=== PATIENT | female | born 1950 | race Caucasian/White ===

== ENCOUNTER → 2018-05-17 | Day surgery (SDC) | payer MEDICARE, OTHER ==
[~2018-05-17] MED LIST: LIDOCAINE 1% PF 2 ML VIAL. ID; LIDOCAINE 2% PF Vial for OR 5 ML VIAL.; MIDAZOLAM HCL/PF 2 MG/2 ML VIAL. IV; PROPOFOL 40 ML IV; fentaNYL PF VIAL 100 MCG/2 ML VIAL IV
[2018-05-17] MEDS: IV RINGERS,LACTATED 1000ML 1,000 ML IV ×2 (12:48→12:49)
== END | disposition home or self-care (01) ==
LOC: SURG 12:23
DX: Z12.11 Encounter for screening for malignant neoplasm of colon (principal); D12.8 Benign neoplasm of rectum; K57.30 Diverticulosis of large intestine without perforation or abscess without bleeding; K64.0 First degree hemorrhoids; F41.9 Anxiety disorder, unspecified; Z88.1 Allergy status to other antibiotic agents; Z88.0 Allergy status to penicillin
CPT/HCPCS: 45380; 45385; 88305; J2001; J2704

== ENCOUNTER 2020-06-19 19:16 | Inpatient (IN) | payer MEDICARE, OTHER ==
[~2020-06-19] VITALS: Ht 165.1 cm; Wt 64.0 kg
[2020-06-19 19:00] VITALS: BP 147/64
[~2020-06-19 19:16] MED LIST changes: +CLON-77 PO; -LIDOCAINE 1% PF 2 ML VIAL. ID; -LIDOCAINE 2% PF Vial for OR 5 ML VIAL.; -MIDAZOLAM HCL/PF 2 MG/2 ML VIAL. IV; -PROPOFOL 40 ML IV; +SERT50TA PO; -fentaNYL PF VIAL 100 MCG/2 ML VIAL IV
[2020-06-19] MEDS ORDERED: ONDANSETRON PF 4 MG/2 ML VIAL. IVP PRN (19:30)
[2020-06-19] MEDS ORDERED: POTASSIUM CL 20MEQ D5-0.45NACL 1,000 ML IV SCH (20:00)
[2020-06-19] MEDS: CIPROFLOXACIN 400MG PREMIX 200 ML IV SCH (20:32)
[2020-06-19] MEDS: POTASSIUM CL 20MEQ D5-0.45NACL 1,000 ML IV SCH (20:32)
[2020-06-19 23:00] VITALS: BP 132/51
[2020-06-20] VITALS (11 sets, daily range): BP systolic 120–140; BP diastolic 45–58
[2020-06-20] MEDS: fentaNYL PF VIAL 100 MCG/2 ML VIAL IVP PRN ×3 (04:52→21:14)
[2020-06-20] MEDS: POTASSIUM CL 20MEQ D5-0.45NACL 1,000 ML IV SCH ×2 (05:53→17:00)
[2020-06-20 07:01] LABS: ALBUMIN/GLOBULIN RATIO 0.9 (1.0-1.7); CALCIUM 8.2 mg/dL (8.5-10.1); CREATININE 0.9 mg/dL (0.6-1.0); GFR 62.1; POTASSIUM 3.7 mmol/L (3.5-5.1); TOTAL BILIRUBIN 0.4 mg/dL (0.2-1.0); TOTAL PROTEIN 6.3 g/dL (6.4-8.2)
[2020-06-20 07:11] LABS: PROTHROMBIN TIME PATIENT 14.4 SEC (11.7-14.0)
[2020-06-20 07:19] LABS: BASO % 1 % (0-3); EOS # 0.1 x10^3/uL (0.0-0.7); EOS % 2 % (0-3); HEMATOCRIT 35.8 % (36.0-47.0); HEMOGLOBIN 12.1 g/dL (12.0-15.5); LYMPH # 1.3 x10^3/uL (1.0-4.8); LYMPH % 18 % (24-48); MEAN CORPUSCULAR HEMOGLOBIN 30 pg (25-35); MEAN CORPUSCULAR HGB CONC 34 g/dL (31-37); MEAN CORPUSCULAR VOLUME 89 fL (79-100); MONO # 0.5 x10^3/uL (0.0-1.1); MONO % 8 % (0-9); NEUT % 72 % (31-73); PLATELET COUNT 195 x10^3/uL (140-400); RED BLOOD COUNT 4.01 x10^6/uL (3.50-5.40); RED CELL DISTRIBUTION WIDTH 14.2 % (11.5-14.5)
[2020-06-20] MEDS: CIPROFLOXACIN 400MG PREMIX 200 ML IV SCH ×2 (09:20→21:07)
--- NOTE | 2020-06-20 09:53 | PN ---
DATE: 06/20/2020 SUBJECTIVE: The patient is a 69-year-old female patient, who was seen originally at [facility] with right lower quadrant pain, was diagnosed with acute appendicitis and was transferred to [facility] for definitive surgical treatment. On questioning her this morning, she continued to have some mild discomfort in her right lower quadrant, but denied any nausea or vomiting. She does continue to have loose bowel movement, but denied any chills, rigors or fever. PHYSICAL EXAMINATION: GENERAL: When I examined her, she looked well and was clearly in no apparent respiratory distress. No pallor, jaundice, cyanosis or thyromegaly. No jugular venous distention. No lower limb edema. VITAL SIGNS: Her heart rate was 69, blood pressure was 140/48, temperature was 98.3, respiratory rate was 18 and oxygen saturation was 95%. HEAD, EYES, EARS, NOSE AND THROAT: Normocephalic, atraumatic. NECK: Supple. CARDIAC: Normal first and second heart sounds. No gallop or murmur. CHEST: Clear to auscultation. No crepitation or rhonchi. ABDOMEN: Distended, soft, with tenderness mostly in the right lower quadrant; however, there is no guarding or rigidity, no organomegaly. All hernial orifices intact. Bowel sounds normal. NEUROLOGIC: She is grossly intact. LABORATORY DATA: Her lab work this morning showed a white cell count of 7000, hemoglobin 12, hematocrit 36, MCV 89, platelet count of 195,000 with normal manual differential. Her chemistry showed a serum sodium of 140, potassium 3.7, chloride 108, bicarbonate 26, anion gap of 6, BUN 5, creatinine was 0.9, estimated GFR was 62 mL per minute, her glucose was 123, calcium was 8.7. Total bilirubin, AST, ALT and alkaline phosphatase were normal. Total protein was 6.3. Albumin 3. Her prothrombin time 14.4, INR 1.2. ASSESSMENT: Acute appendicitis. PLAN: To obviously continue with n.p.o. status; await evaluation by the Surgical team; continue with IV fluid, IV pain medication and antiemetic as well as IV antibiotics in the form of Cipro as well as Flagyl. FELICIA SANCHEZ MD DR: ARMANDO/rishi JOB#: [id number] / [id number]
--- NOTE | 2020-06-20 10:25 | HP ---
ADMIT DATE: 06/20/2020 HISTORY OF PRESENT ILLNESS: The patient is a 69-year-old female patient, who presented to the Emergency Room of [facility] with complaint of right lower quadrant abdominal pain and diarrhea. The abdominal pain is mild to moderate, cramping, intermittent in nature. She apparently has had diarrhea for a couple of days. Apparently, anything that she tries to eat, has forcefully as diarrhea. She has not had this before, so she is concerned. No history of abdominal surgery. She was recently diagnosed with urinary tract infection and was put on Cipro; has taken a total of 4 doses before she arrived to the Emergency Room; however, she denied any nausea or vomiting. Denied any chills, rigors, or fever. She was extensively investigated in the Emergency Room and her lab work showed that her white cell count was normal. Her chemistry was unremarkable. Urinalysis was unrevealing and her COVID-19 rapid testing was negative and the patient had a CT scan of the abdomen and pelvis, which showed that the patient has finding of acute appendicitis with mild adjacent fat stranding, no fluid collection or evidence of perforation, and therefore, the patient was transferred to [facility] to consult the surgical team for definitive surgical treatment. PAST MEDICAL HISTORY: Unremarkable except perhaps for depression. PAST SURGICAL HISTORY: Also, unremarkable. She has had a colonoscopy before. ALLERGIES: SHE IS ALLERGIC TO PENICILLIN AND SULFA DRUGS. MEDICATIONS: The patient is on Align as well as sertraline. FAMILY HISTORY: Unremarkable. SOCIAL HISTORY: She does not smoke, drink alcohol, or use any recreational drugs. REVIEW OF SYSTEMS: As per history of present illness. PHYSICAL EXAMINATION: GENERAL: On arrival to the Emergency Room, she looked well and was clearly in no apparent respiratory distress. No pallor, jaundice, cyanosis, or thyromegaly. No jugular venous distention. No lower limb edema. VITAL SIGNS: Her heart rate was 83, blood pressure 155/73, temperature was 98.4, respiratory rate was 18, and oxygen saturation 100%. HEAD, EYES, EARS, NOSE AND THROAT: Normocephalic, atraumatic. NECK: Supple. CARDIAC: Normal first and second heart sounds. No gallop, rub, or murmur. CHEST: Shows central trachea, equal bilateral chest expansion, air entry, vesicular sounds. No crepitation or rhonchi. ABDOMEN: Distended, soft with tenderness mostly in the right lower quadrant. There is no guarding or rigidity. No organomegaly. All hernial orifice intact. Bowel sounds normal. NEUROLOGIC: She was grossly intact. LABORATORY DATA: Showed a white cell count 7200; hemoglobin 13.7; hematocrit 41; MCV 90; and platelet count 214,000. Her chemistry showed a serum sodium 138, potassium 3.7, chloride 102, bicarbonate 26, anion gap of 10, BUN 8, creatinine 1, estimated GFR was 55 mL per minute. Her glucose 105. Calcium was 8.9. Total bilirubin, AST, ALT, alkaline phosphatase were normal. Total protein 7.6. Albumin 3.7. Her urinalysis showed the urine was straw colored, clear with a pH of 6, specific gravity 1.005. The urine was negative for protein and glucose. There was a trace of blood. Negative for nitrite and leukocyte esterase. There are rare wbc's, rare rbc's, and no bacteria. The CT scan of the abdomen and pelvis showed that heart size is normal. No pericardial effusion. Visualized lung bases are clear. No pleural effusion. Liver, spleen, pancreas, gallbladder, and adrenals are unremarkable. Kidneys demonstrate symmetric enhancement. No perinephric inflammation or hydronephrosis. No renal or ureteral calculi are identified. Bladder is decompressed; not well evaluated. The uterus is not enlarged, with no abnormal adnexal masses. The appendix is dilated measuring 1 cm in diameter. There is mild adjacent fat stranding noted. No fluid collection identified. Few scattered diverticula noted in the sigmoid colon. The remainder of the large and small bowel are unremarkable for no obstruction. Abdominal aorta has normal course and caliber. Abdominal vasculature is patent. No enlarged intra-abdominal lymph nodes are identified. No suspicious osseous lesions or acute fractures identified. ASSESSMENT AND PLAN: The patient was admitted to [facility], is kept n.p.o., started on IV fluid, IV pain medication. Continue with IV ciprofloxacin as well as Flagyl. We have consulted the surgical team. FELICIA SANCHEZ MD DR: ARMANDO/rishi JOB#: [id number] / [id number]
--- NOTE | 2020-06-20 11:08 | PDOC2 ---
CONSULT Date of Consult Date of Consult DATE: 06/20/20 TIME: 10:58 Reason for Consult Reason for Consult: appendicitis Referring Physician Referring Physician: Dr. Ledezma Identification/Chief Complaint Chief Complaint diarrhea Source Source: Chart review, Patient History of Present Illness Reason for Visit: 69 yo F with c/o diarrhea and mild RLQ abd pain. Seen in clinic and treated for UTI. Pt with persistent issues and presented to [facility] ER last night and diagnosed with appendicitis. Transferred to [facility] for care. Pt seen in room and reports pain is mild, but still uncomfortable. She had a recent colonoscopy in the past year with small polyp and diverticulosis. Past Medical History Cardiovascular: No pertinent hx Psych: Depression Past Surgical History Past Surgical History: No pertinent history Family History Family History: No Significant Social History No ALCOHOL: none Current Medications Current Medications Current Medications Ciprofloxacin/ Dextrose 200 ml @ 200 mls/hr Q12HR IV Last administered on 06/20/20at 09:20; Start 06/19/20 at 21:00 Metronidazole 100 ml @ 100 mls/hr Q8HRS IV Last administered on 06/20/20at 05:52; Start 06/19/20 at 22:00 Potassium Chloride/Dextrose/ Sod Cl 1,000 ml @ 100 mls/hr Q10H IV ; Start 06/19/20 at 20:00; Status Cancel Fentanyl Citrate (Fentanyl 2ml Vial) 50 mcg PRN Q3HRS PRN IVP PAIN Last administered on 06/20/20at 04:52; Start 06/19/20 at 19:30 Ondansetron HCl (Zofran) 4 mg PRN Q4HRS PRN IVP NAUSEA/VOMITING; Start 06/19/20 at 19:30 Potassium Chloride/Dextrose/ Sod Cl 1,000 ml @ 100 mls/hr Q10H IV Last administered on 06/20/20at 05:53; Start 06/19/20 at 21:00 Active Scripts Active Reported Clonazepam 0.5 Mg Tablet 0.5 Mg PO TID Zoloft (Sertraline Hcl) 50 Mg Tablet 50 Mg PO DAILY Allergies Allergies: Coded Allergies: Penicillins (Verified Allergy, Intermediate, Hives, 05/17/18) Sulfa (Sulfonamide Antibiotics) (Unverified Allergy, Intermediate, 05/17/18) ROS Gastrointestinal: Yes Abdominal Pain, Yes Diarrhea Physical Exam General: Alert, Oriented X3, Cooperative, mild distress HEENT: Atraumatic Lungs: Normal air movement Abdomen: Soft, Other (mild TTP RLQ) Extremities: No clubbing, No cyanosis Skin: No rashes, No breakdown Neuro: Normal speech, Sensation intact Psych/Mental Status: Mental status NL, Mood NL Vitals VITALS Vital Signs Date Time Temp Pulse Resp B/P (MAP) Pulse Ox O2 Delivery O2 Flow Rate FiO2 06/20/20 07:00 98.3 69 18 140/48 (78) 95 Room Air 98.3 Labs Labs Laboratory Tests Test 06/20/20 05:41 White Blood Count 7.0 x10^3/uL (4.0-11.0) Red Blood Count 4.01 x10^6/uL (3.50-5.40) Hemoglobin 12.1 g/dL (12.0-15.5) Hematocrit 35.8 % (36.0-47.0) Mean Corpuscular Volume 89 fL (79-100) Mean Corpuscular Hemoglobin 30 pg (25-35) Mean Corpuscular Hemoglobin Concent 34 g/dL (31-37) Red Cell Distribution Width 14.2 % (11.5-14.5) Platelet Count 195 x10^3/uL (140-400) Neutrophils (%) (Auto) 72 % (31-73) Lymphocytes (%) (Auto) 18 % (24-48) Monocytes (%) (Auto) 8 % (0-9) Eosinophils (%) (Auto) 2 % (0-3) Basophils (%) (Auto) 1 % (0-3) Neutrophils # (Auto) 5.0 x10^3/uL (1.8-7.7) Lymphocytes # (Auto) 1.3 x10^3/uL (1.0-4.8) Monocytes # (Auto) 0.5 x10^3/uL (0.0-1.1) Eosinophils # (Auto) 0.1 x10^3/uL (0.0-0.7) Basophils # (Auto) 0.0 x10^3/uL (0.0-0.2) Prothrombin Time 14.4 SEC (11.7-14.0) Prothromb Time International Ratio 1.2 (0.8-1.1) Sodium Level 140 mmol/L (136-145) Potassium Level 3.7 mmol/L (3.5-5.1) Chloride Level 108 mmol/L (98-107) Carbon Dioxide Level 26 mmol/L (21-32) Anion Gap 6 (6-14) Blood Urea Nitrogen 5 mg/dL (7-20) Creatinine 0.9 mg/dL (0.6-1.0) Estimated GFR (Cockcroft-Gault) 62.1 BUN/Creatinine Ratio 6 (6-20) Glucose Level 123 mg/dL (70-99) Calcium Level 8.2 mg/dL (8.5-10.1) Total Bilirubin 0.4 mg/dL (0.2-1.0) Aspartate Amino Transf (AST/SGOT) 20 U/L (15-37) Alanine Aminotransferase (ALT/SGPT) 33 U/L (14-59) Alkaline Phosphatase 63 U/L (46-116) Total Protein 6.3 g/dL (6.4-8.2) Albumin 3.0 g/dL (3.4-5.0) Albumin/Globulin Ratio 0.9 (1.0-1.7) Laboratory Tests Test 06/20/20 05:41 White Blood Count 7.0 x10^3/uL (4.0-11.0) Red Blood Count 4.01 x10^6/uL (3.50-5.40) Hemoglobin 12.1 g/dL (12.0-15.5) Hematocrit 35.8 % (36.0-47.0) Mean Corpuscular Volume 89 fL (79-100) Mean Corpuscular Hemoglobin 30 pg (25-35) Mean Corpuscular Hemoglobin Concent 34 g/dL (31-37) Red Cell Distribution Width 14.2 % (11.5-14.5) Platelet Count 195 x10^3/uL (140-400) Neutrophils (%) (Auto) 72 % (31-73) Lymphocytes (%) (Auto) 18 % (24-48) Monocytes (%) (Auto) 8 % (0-9) Eosinophils (%) (Auto) 2 % (0-3) Basophils (%) (Auto) 1 % (0-3) Neutrophils # (Auto) 5.0 x10^3/uL (1.8-7.7) Lymphocytes # (Auto) 1.3 x10^3/uL (1.0-4.8) Monocytes # (Auto) 0.5 x10^3/uL (0.0-1.1) Eosinophils # (Auto) 0.1 x10^3/uL (0.0-0.7) Basophils # (Auto) 0.0 x10^3/uL (0.0-0.2) Prothrombin Time 14.4 SEC (11.7-14.0) Prothromb Time International Ratio 1.2 (0.8-1.1) Sodium Level 140 mmol/L (136-145) Potassium Level 3.7 mmol/L (3.5-5.1) Chloride Level 108 mmol/L (98-107) Carbon Dioxide Level 26 mmol/L (21-32) Anion Gap 6 (6-14) Blood Urea Nitrogen 5 mg/dL (7-20) Creatinine 0.9 mg/dL (0.6-1.0) Estimated GFR (Cockcroft-Gault) 62.1 BUN/Creatinine Ratio 6 (6-20) Glucose Level 123 mg/dL (70-99) Calcium Level 8.2 mg/dL (8.5-10.1) Total Bilirubin 0.4 mg/dL (0.2-1.0) Aspartate Amino Transf (AST/SGOT) 20 U/L (15-37) Alanine Aminotransferase (ALT/SGPT) 33 U/L (14-59) Alkaline Phosphatase 63 U/L (46-116) Total Protein 6.3 g/dL (6.4-8.2) Albumin 3.0 g/dL (3.4-5.0) Albumin/Globulin Ratio 0.9 (1.0-1.7) Images Images CT c/w appendicitis, without obvious other findings Assessment/Plan Assessment/Plan Appendicitis, although history and presentation unusual for appendicitis. Possible concern for colitis. However, still favor proceeding with appendectomy, given CT and pt c/o pain. This may not be the definitive diagnosis, however. R/R/B/A d/w pt. Risks, including, but not limited to: bleeding, infection, damage to surrounding structures, risk of anesthesia, risk of open. She appears to understand, her questions are answered and she elects to proceed. Thanks for consult! JEWELS RAY MD Jun 20, 2020 11:08
[2020-06-20] MEDS ORDERED: BUPIVACAINE-EPI 0.5%-1:200000 MPF 30 ML VIAL. ONE (12:04)
[2020-06-20] MEDS ORDERED: SUCCINYLCHOLINE 200 MG/10 ML VIAL. ONE (12:43)
[2020-06-20] MEDS ORDERED: LIDOCAINE 2% PF 5 ML VIAL. ONE (12:43)
[2020-06-20] MEDS ORDERED: fentaNYL PF VIAL 100 MCG/2 ML VIAL ONE (12:43)
[2020-06-20] MEDS ORDERED: ROCURONIUM 50 MG/5 ML VIAL. ONE (12:43)
[2020-06-20] MEDS ORDERED: PROPOFOL 10 MG/ML (20ML) VIAL. IV ONE (12:43)
[2020-06-20] MEDS ORDERED: ONDANSETRON PF 4 MG/2 ML VIAL. ONE (12:47)
[2020-06-20] MEDS ORDERED: DEXAMETHASONE SOD PHOS 4 MG/ML VIAL ONE ×2 (12:47→13:31)
[2020-06-20] MEDS ORDERED: NEOSTIGMINE 10 MG/10 ML VIAL. ONE (13:50)
[2020-06-20] MEDS ORDERED: ePHEDrine PF IN SALINE 50 MG/10 ML SYRINGE. IV ONE (13:50)
[2020-06-20] MEDS ORDERED: GLYCOPYRROLATE 1 MG/5 ML VIAL. ONE (13:50)
[2020-06-20] MEDS ORDERED: IV RINGERS,LACTATED 1000ML 1,000 ML IV SCH ×2 (13:52→14:29)
[2020-06-20] MEDS ORDERED: MORPHINE SULFATE 2 MG/ML VIAL. IV PRN (14:00)
[2020-06-20] MEDS ORDERED: HYDROmorphone 2 MG/ML VIAL IV PRN (14:00)
[2020-06-20] MEDS ORDERED: fentaNYL PF VIAL 100 MCG/2 ML VIAL IV PRN (14:00)
[2020-06-20] MEDS ORDERED: LIDOCAINE 1% PF 2 ML VIAL. ID PRN (14:00)
[2020-06-20] MEDS ORDERED: PROCHLORPERAZINE 10 MG/2 ML VIAL. IV PRN (14:00)
[2020-06-20] MEDS ORDERED: IV NORMAL SALINE 1000ML BAG 1,000 ML IV SCH (14:29)
[2020-06-20] MEDS ORDERED: 0.9 % SODIUM CHLORIDE 10 ML DISP.SYRIN. IV PRN (14:30)
[2020-06-20] MEDS ORDERED: NALOXONE 0.4 MG/ML VIAL. IV PRN (14:30)
--- NOTE | 2020-06-20 14:36 | PDOC4 ---
OPERATIVE NOTE Date: Date: Jun 20, 2020 Pre-Op Diagnosis: Appendicitis Post-Op Diagnosis: same Procedure Performed: laparoscopic appendectomy Surgeon: Ta Ray Anesthesia Type: GETA plus local Blood Loss: 50 Specimans Obtained: appendix Findings: indurated, inflamed appendix Complications: none Operative Note: After obtaining informed consent, patient was taken to OR, induced under GETA and prepped in the usual fashion. 5 mm port placed LLQ and suprapubic, 12 port placed umbilical, all under laparoscopic guidance. Abdominal cavity was explored and otherwise unremarkable. Appendix was noted as above. Defect created in mesoappendix. MAICOL general load taken across base of appendix. Vascular load taken across mesoappendix. Additional hemostasis obtained on staple lines using clips. Appendix placed in bag, delivered and sent to pathology. Copious irrigation. No evidence of bleeding or other pathology. Ports removed without bleeding. Fascia repaired with 0 vicryl. Skin repaired with [address] Patient tolerated procedure well and sent to PACU in stable condition. All counts correct. Wound class is 3. JEWELS RAY MD Jun 20, 2020 14:36
[2020-06-20] MEDS: fentaNYL PF VIAL 100 MCG/2 ML VIAL IV PRN ×3 (14:46→15:59)
[2020-06-20] MEDS: DOCUSATE SODIUM 100 MG CAPSULE. PO SCH (21:06)
[2020-06-21] MEDS: POTASSIUM CL 20MEQ D5-0.45NACL 1,000 ML IV SCH ×2 (00:03→13:00)
[2020-06-21] MEDS: fentaNYL PF VIAL 100 MCG/2 ML VIAL IVP PRN ×2 (00:09→04:13)
[2020-06-21 03:00] VITALS: BP 111/44
[2020-06-21 07:00] VITALS: BP 100/43
[2020-06-21 07:31] LABS: CALCIUM 8.3 mg/dL (8.5-10.1); CREATININE 0.9 mg/dL (0.6-1.0); GFR 62.1; POTASSIUM 3.8 mmol/L (3.5-5.1)
[2020-06-21 07:32] LABS: BASO % 0 % (0-3); EOS % 0 % (0-3); HEMATOCRIT 33.2 % (36.0-47.0); HEMOGLOBIN 11.2 g/dL (12.0-15.5); LYMPH # 0.9 x10^3/uL (1.0-4.8); LYMPH % 9 % (24-48); MEAN CORPUSCULAR HEMOGLOBIN 30 pg (25-35); MEAN CORPUSCULAR HGB CONC 34 g/dL (31-37); MEAN CORPUSCULAR VOLUME 88 fL (79-100); MONO # 0.6 x10^3/uL (0.0-1.1); MONO % 7 % (0-9); NEUT # 7.6 x10^3/uL (1.8-7.7); NEUT % 84 % (31-73); PLATELET COUNT 197 x10^3/uL (140-400); RED BLOOD COUNT 3.77 x10^6/uL (3.50-5.40); RED CELL DISTRIBUTION WIDTH 14.2 % (11.5-14.5); WHITE BLOOD COUNT 9.1 x10^3/uL (4.0-11.0)
[2020-06-21] MEDS: DOCUSATE SODIUM 100 MG CAPSULE. PO SCH (09:00)
[2020-06-21] MEDS: HYDROcodone/APAP 5/325MG 1 TAB TABLET PO PRN ×2 (09:26→14:33)
[2020-06-21] MEDS: CIPROFLOXACIN 400MG PREMIX 200 ML IV SCH (09:34)
[2020-06-21 11:00] VITALS: BP 102/50
[2020-06-21 15:00] VITALS: BP 108/52
[2020-06-21] MEDS ORDERED: METR250T PO (15:11)
[2020-06-21] MEDS ORDERED: CIPR500T94 PO (15:12)
[2020-06-21] MEDS ORDERED: HYDR-2761 PO (15:13)
--- NOTE | 2020-06-21 15:21 | PDOC ---
SURGICAL PROGRESS NOTE Subjective Pt feels well, abd pain well controlled, no further diarrhea Vital Signs Vital Signs Date Time Temp Pulse Resp B/P (MAP) Pulse Ox O2 Delivery O2 Flow Rate FiO2 06/21/20 14:33 20 Room Air 06/21/20 11:00 98.6 70 102/50 (67) 97 98.6 06/21/20 08:00 8.0 I&O Intake and Output 06/21/20 07:00 Intake Total 1925 ml Output Total 90 ml Balance 1835 ml Intake Oral 975 ml IV Total 950 ml Output Urine Total 80 ml Estimated Blood Loss 10 ml # Voids 7 General: Alert, Oriented X3, Cooperative, No acute distress Abdomen: Soft, No tenderness, Other (dressing c/d/i) Labs Laboratory Tests Test 06/20/20 04:25 06/20/20 05:41 06/21/20 06:10 Clostridium difficile Toxin (PCR) Negative (NEGATIVE) White Blood Count 7.0 x10^3/uL (4.0-11.0) 9.1 x10^3/uL (4.0-11.0) Red Blood Count 4.01 x10^6/uL (3.50-5.40) 3.77 x10^6/uL (3.50-5.40) Hemoglobin 12.1 g/dL (12.0-15.5) 11.2 g/dL (12.0-15.5) Hematocrit 35.8 % (36.0-47.0) 33.2 % (36.0-47.0) Mean Corpuscular Volume 89 fL (79-100) 88 fL (79-100) Mean Corpuscular Hemoglobin 30 pg (25-35) 30 pg (25-35) Mean Corpuscular Hemoglobin Concent 34 g/dL (31-37) 34 g/dL (31-37) Red Cell Distribution Width 14.2 % (11.5-14.5) 14.2 % (11.5-14.5) Platelet Count 195 x10^3/uL (140-400) 197 x10^3/uL (140-400) Neutrophils (%) (Auto) 72 % (31-73) 84 % (31-73) Lymphocytes (%) (Auto) 18 % (24-48) 9 % (24-48) Monocytes (%) (Auto) 8 % (0-9) 7 % (0-9) Eosinophils (%) (Auto) 2 % (0-3) 0 % (0-3) Basophils (%) (Auto) 1 % (0-3) 0 % (0-3) Neutrophils # (Auto) 5.0 x10^3/uL (1.8-7.7) 7.6 x10^3/uL (1.8-7.7) Lymphocytes # (Auto) 1.3 x10^3/uL (1.0-4.8) 0.9 x10^3/uL (1.0-4.8) Monocytes # (Auto) 0.5 x10^3/uL (0.0-1.1) 0.6 x10^3/uL (0.0-1.1) Eosinophils # (Auto) 0.1 x10^3/uL (0.0-0.7) 0.0 x10^3/uL (0.0-0.7) Basophils # (Auto) 0.0 x10^3/uL (0.0-0.2) 0.0 x10^3/uL (0.0-0.2) Prothrombin Time 14.4 SEC (11.7-14.0) Prothromb Time International Ratio 1.2 (0.8-1.1) Sodium Level 140 mmol/L (136-145) 142 mmol/L (136-145) Potassium Level 3.7 mmol/L (3.5-5.1) 3.8 mmol/L (3.5-5.1) Chloride Level 108 mmol/L (98-107) 109 mmol/L (98-107) Carbon Dioxide Level 26 mmol/L (21-32) 26 mmol/L (21-32) Anion Gap 6 (6-14) 7 (6-14) Blood Urea Nitrogen 5 mg/dL (7-20) 4 mg/dL (7-20) Creatinine 0.9 mg/dL (0.6-1.0) 0.9 mg/dL (0.6-1.0) Estimated GFR (Cockcroft-Gault) 62.1 62.1 BUN/Creatinine Ratio 6 (6-20) Glucose Level 123 mg/dL (70-99) 146 mg/dL (70-99) Calcium Level 8.2 mg/dL (8.5-10.1) 8.3 mg/dL (8.5-10.1) Total Bilirubin 0.4 mg/dL (0.2-1.0) Aspartate Amino Transf (AST/SGOT) 20 U/L (15-37) Alanine Aminotransferase (ALT/SGPT) 33 U/L (14-59) Alkaline Phosphatase 63 U/L (46-116) Total Protein 6.3 g/dL (6.4-8.2) Albumin 3.0 g/dL (3.4-5.0) Albumin/Globulin Ratio 0.9 (1.0-1.7) Laboratory Tests Test 06/21/20 06:10 White Blood Count 9.1 x10^3/uL (4.0-11.0) Red Blood Count 3.77 x10^6/uL (3.50-5.40) Hemoglobin 11.2 g/dL (12.0-15.5) Hematocrit 33.2 % (36.0-47.0) Mean Corpuscular Volume 88 fL (79-100) Mean Corpuscular Hemoglobin 30 pg (25-35) Mean Corpuscular Hemoglobin Concent 34 g/dL (31-37) Red Cell Distribution Width 14.2 % (11.5-14.5) Platelet Count 197 x10^3/uL (140-400) Neutrophils (%) (Auto) 84 % (31-73) Lymphocytes (%) (Auto) 9 % (24-48) Monocytes (%) (Auto) 7 % (0-9) Eosinophils (%) (Auto) 0 % (0-3) Basophils (%) (Auto) 0 % (0-3) Neutrophils # (Auto) 7.6 x10^3/uL (1.8-7.7) Lymphocytes # (Auto) 0.9 x10^3/uL (1.0-4.8) Monocytes # (Auto) 0.6 x10^3/uL (0.0-1.1) Eosinophils # (Auto) 0.0 x10^3/uL (0.0-0.7) Basophils # (Auto) 0.0 x10^3/uL (0.0-0.2) Sodium Level 142 mmol/L (136-145) Potassium Level 3.8 mmol/L (3.5-5.1) Chloride Level 109 mmol/L (98-107) Carbon Dioxide Level 26 mmol/L (21-32) Anion Gap 7 (6-14) Blood Urea Nitrogen 4 mg/dL (7-20) Creatinine 0.9 mg/dL (0.6-1.0) Estimated GFR (Cockcroft-Gault) 62.1 Glucose Level 146 mg/dL (70-99) Calcium Level 8.3 mg/dL (8.5-10.1) Problem List s/p lap appendectomy doing well OK to d/c home f/u in two weeks Justicifation of Admission Dx: Justifications for Admission: Justification of Admission Dx: Yes Sepsis: Infection JEWELS RAY MD Jun 21, 2020 15:21
--- NOTE | 2020-06-21 16:22 | NUR ---
Discharge teaching completed. IV site discontinued without difficulty. Surgical dressings changed and I taught wound care and dressing changes. Pt has 3 Rx scripts to take home and states she understands her home medications and follow up instructions. She was seen by Dr Akers just before discharge. Addendum: 06/21/20 at 1626 by Rosa Mora RN she was discharged to home with a friend; escorted out by staff via w/c
[2020-06-21] MEDS ORDERED: LACTOBACILLUS RHAMNOSUS GG 1 CAPSULE. PO SCH (21:00)
--- NOTE | 2020-06-23 17:07 | PATHOLOGY ---
[facility] Accession Number: [id number] . 01 Material submitted: . appendix - APPENDIX . 01 Clinical history: . Appendicitis . 02 Diagnosis: Appendix, laparoscopic appendectomy: - Subacute/chronic and focal acute appendicitis: ([facility] 06/23/2020) [facility] 06/23/2020 1637 Local . 02 Comment: There is no evidence of malignancy. ([facility] 06/23/2020) . 02 Electronically signed: . Delmar Juarez MD, Pathologist NPI- [id number] . 01 Gross description: . The specimen is received in formalin, labeled "Lorena Tamayo, appendix". Received is a vermiform appendix measuring 6.4 cm in length by up to 1.2 cm in diameter with a moderate amount of attached mesoappendix. The serosal surface is pale calderon and smooth to slightly shaggy in appearance. The surgical margin is closed with a line of mckinley. The mckinley are removed and the new margin is inked black. Sectioning reveals a pinpoint to occluded lumen. The specimen is submitted representatively in cassettes A1 and A2, with the proximal margin and bisected tip submitted in cassette A1. ([facility]AA; 06/22/2020) QAC/QAC 06/22/2020 1708 Local . 02 Pathologist provided ICD-10: K35.80 . 02 CPT . 469458 Specimen Comment: A courtesy copy of this report has been sent to [phone] Specimen Comment: [id number], Specimen Comment: Report sent to ,DR SANCHEZ / DR GRIFFIN Performed at: [address], [place] [id number] MD Linden Ward MD Phone: [phone] Performed at: [address] [id number] MD Delmar Juarez MD Phone: [phone]
== END 2020-06-21 16:53 | disposition home or self-care (01) | DRG 343 ==
LOC: 4 NORTH 19:16
PROVIDERS: ADMIT Internal Medicine; ATTEND Internal Medicine
PROC: 0DTJ4ZZ Resection of Appendix, Percutaneous Endoscopic Approach (ICD-10-PCS; principal; 2020-06-20 13:00)
DX: K35.80 Unspecified acute appendicitis (principal); F32.9 Major depressive disorder, single episode, unspecified; K57.90 Diverticulosis of intestine, part unspecified, without perforation or abscess without bleeding; Z88.0 Allergy status to penicillin; Z88.2 Allergy status to sulfonamides
CPT/HCPCS: 36415; 80048; 80053; 85025; 85610; 87493; 88304; A7015; J0330; J0744; J1100; J2405; J2704; J2710; J3010; J3480; J3490; J7030; G0378